=== PATIENT | female | born 1955 | race Two or more races ===

== ENCOUNTER 2020-06-24 11:23 | Inpatient (IN) | payer OTHER ==
[~2020-06-24] VITALS: Ht 154.9 cm; Wt 98.8 kg
[2020-06-24 12:09] LABS: BASOPHILS % (AUTO) 0 % (0-1); EOSINOPHILS % (AUTO) 0 % (1-7); LYMPHOCYTES % (AUTO) 10 % (22-44); MEAN PLATELET VOLUME 7.1 fL (7.4-10.4); MONOCYTES % (AUTO) 3 % (2-9); NEUTROPHILS % (AUTO) 87 % (42-75); PLATELET COUNT 377 x10^3/uL (130-400); RED CELL DISTRIBUTION WIDTH 14.6 % (9.6-15.2)
[2020-06-24] MEDS ORDERED: OMNIPAQUE 350 MG/ML, 100ML BOTTLE ONE (12:21)
[2020-06-24 12:22] LABS: INTERNATIONAL NORMALIZED RATIO 0.94 (0.93-1.1)
[2020-06-24 12:48] LABS: MD SCAN
[2020-06-24 12:49] LABS: MICROSCOPIC NOT IND
[2020-06-24] MEDS ORDERED: POTASSIUM CHLORIDE 20 MEQ TAB.ER.PRT PO ONE (13:00)
[2020-06-24] MEDS ORDERED: NS + 40MEQ KCL 1,000 ML IV ONE (13:02)
[2020-06-24] MEDS: NS + 40MEQ KCL 1,000 ML IV SCH ×3 (13:19→22:43)
[2020-06-24 13:45] LABS: CHLORIDE 96 mmol/L (98-107)
[2020-06-24 13:51] LABS: ALANINE AMINOTRANSFERASE 26 U/L (12-78); ALBUMIN 3.4 g/dL (3.4-5.0); ALKALINE PHOSPHATASE 88 U/L (45-117); ANION GAP 4 mmol/L (5-15); TOTAL PROTEIN 7.2 g/dL (6.4-8.2)
[2020-06-24 14:12] LABS: CALCIUM 18.1 mg/dL (8.5-10.1)
[2020-06-24] MEDS ORDERED: CALCITONIN SALMON 200 UNITS/ML, 2ML SQ ONE (14:49)
[2020-06-24 15:52] LABS: CHLORIDE,URINE RANDOM 75 mmol/L; POTASSIUM,URINE RANDOM 63 mmol/L; SODIUM,URINE RANDOM 36 mmol/L
[2020-06-24] MEDS ORDERED: PAMIDRONATE 3 MG/ML, 10ML IV ONE (16:30)
[2020-06-24] MEDS ORDERED: MAGNESIUM SULFATE PMX 2GM/50ML 50 ML IV ONE ×2 (16:30→19:30)
[2020-06-24 17:03] LABS: ANION GAP 2 mmol/L (5-15); CHLORIDE 98 mmol/L (98-107); CREATININE 2.39 mg/dL (0.55-1.02)
[2020-06-24 17:07] LABS: TROPONIN I < 0.015 ng/mL (0.000-0.045)
[2020-06-24] MEDS ORDERED: HEPARIN 5,000 UNITS/ML, 1ML ONE (17:09)
[2020-06-24] MEDS ORDERED: MAGNESIUM SULFATE PMX 2GM/50ML 50 ML ONE ×2 (17:09→19:45)
[2020-06-24] MEDS: HEPARIN 5,000 UNITS/ML, 1ML SQ SCH (17:18)
[2020-06-24] MEDS ORDERED: PAMIDRONATE 60 MG in SODIUM CHLORIDE 0.9% 500 ML IV ONE (17:30)
[2020-06-24] MEDS: INSULIN LISPRO 100 UNITS/ML, PEN SQ-INSULIN SCH ×2 (17:33→22:48)
[2020-06-24] MEDS ORDERED: LABETALOL 20 MG/4 ML ONE (18:18)
[2020-06-24] MEDS: LABETALOL 5MG/ML, 20ML IVPush PRN (18:23)
[2020-06-24] MEDS ORDERED: ETOMIDATE 20 MG/10 ML ONE (18:45)
[2020-06-24] MEDS ORDERED: PROPOFOL 10 MG/ML, 20ML ONE (18:45)
[2020-06-24] MEDS ORDERED: MIDAZOLAM 1 MG/ML, 5ML ONE (18:45)
[2020-06-24] MEDS ORDERED: INSULIN LISPRO 100 UNITS/ML, PEN SQ-INSULIN SCH (21:00)
[2020-06-24 22:45] LABS: TROPONIN I < 0.015 ng/mL (0.000-0.045)
[2020-06-24 22:52] LABS: ANION GAP 4 mmol/L (5-15); CHLORIDE 102 mmol/L (98-107); CREATININE 2.36 mg/dL (0.55-1.02)
[2020-06-24 22:58] LABS: CALCIUM 15.2 mg/dL (8.5-10.1)
[2020-06-25 04:00] VITALS: BP 162/84
[2020-06-25] MEDS: NS + 40MEQ KCL 1,000 ML IV SCH (04:18)
[2020-06-25 04:48] LABS: BASOPHILS % (AUTO) 0 % (0-1); EOSINOPHILS % (AUTO) 0 % (1-7); LYMPHOCYTES % (AUTO) 6 % (22-44); MEAN CORPUSCULAR HEMOGLOBIN 28.9 pg (27.0-34.8); MEAN CORPUSCULAR HGB CONC 32.6 g/dL (32.4-35.8); MEAN PLATELET VOLUME 7.2 fL (7.4-10.4); MONOCYTES % (AUTO) 2 % (2-9); NEUTROPHILS % (AUTO) 92 % (42-75); PLATELET COUNT 310 x10^3/uL (130-400); RED BLOOD COUNT 4.68 x10^6/uL (3.82-5.3); RED CELL DISTRIBUTION WIDTH 14.5 % (9.6-15.2)
[2020-06-25 04:49] LABS: MD NO
[2020-06-25 04:57] LABS: CHLORIDE 109 mmol/L (98-107)
[2020-06-25 05:02] LABS: ALANINE AMINOTRANSFERASE 21 U/L (12-78); ALBUMIN 2.8 g/dL (3.4-5.0); ALKALINE PHOSPHATASE 78 U/L (45-117); ANION GAP 3 mmol/L (5-15); BILIRUBIN,TOTAL 0.5 mg/dL (0.2-1.0); CREATININE 2.32 mg/dL (0.55-1.02); TOTAL PROTEIN 6.4 g/dL (6.4-8.2)
[2020-06-25 05:04] LABS: CALCIUM 14.3 mg/dL (8.5-10.1)
[2020-06-25] MEDS: HEPARIN 5,000 UNITS/ML, 1ML SQ SCH ×2 (05:51→15:54)
[2020-06-25] MEDS: INSULIN LISPRO 100 UNITS/ML, PEN SQ-INSULIN SCH ×3 (07:00→21:51)
[2020-06-25] MEDS: LABETALOL 5MG/ML, 20ML IVPush PRN ×2 (08:08→17:08)
[2020-06-25] MEDS ORDERED: CEFTRIAXONE PMX 2GM/50ML 50 ML IVPB SCH (09:00)
[2020-06-25] MEDS: KSCALE TO 4.5 IV SCH ×3 (09:30→15:52)
[2020-06-25] MEDS: SODIUM CHLORIDE 0.9% 1,000 ML IV SCH ×3 (09:33→21:50)
[2020-06-25] MEDS: FUROSEMIDE 40 MG/4 ML IV SCH ×2 (10:39→20:25)
[2020-06-25] MEDS ORDERED: POTASSIUM CHLORIDE 10% 40 MEQ/30 ML UDC PO ONE (11:00)
[2020-06-25] MEDS ORDERED: ACETAMINOPHEN 650 MG/20.3 ML UDC ONE (11:05)
[2020-06-25] MEDS: ACETAMINOPHEN 650 MG/20.3 ML UDC PO PRN ×2 (11:26→17:48)
[2020-06-25] MEDS: METOPROLOL TARTRATE 25 MG TAB PO SCH ×2 (13:34→21:43)
[2020-06-25] MEDS: AMPICILLIN/SULBACTAM 1,500 MG in SODIUM CHLORIDE 0.9% 50 ML IV SCH ×2 (14:03→22:05)
[2020-06-25] MEDS ORDERED: LEVO150T5 PO (14:08)
[2020-06-25] MEDS ORDERED: LISI1TAB20 PO (14:08)
[2020-06-25] MEDS ORDERED: METF500T27 PO (14:08)
[2020-06-25] MEDS ORDERED: GLYB5TAB3 PO (14:08)
[2020-06-25] MEDS ORDERED: ATOR40TA78 PO (14:08)
[2020-06-25] MEDS ORDERED: POTASSIUM CHLORIDE 20 MEQ TAB.ER.PRT PO SCH (17:00)
[2020-06-25] MEDS ORDERED: POTASSIUM CHLORIDE 20 MEQ PACKET PO SCH (21:00)
[2020-06-26] MEDS: LABETALOL 5MG/ML, 20ML IVPush PRN ×2 (01:14→04:10)
[2020-06-26] MEDS: INSULIN LISPRO 100 UNITS/ML, PEN SQ-INSULIN SCH ×4 (03:00→20:50)
[2020-06-26] MEDS: SODIUM CHLORIDE 0.9% 1,000 ML IV SCH (03:59)
[2020-06-26 04:00] VITALS: BP 160/79
[2020-06-26 04:55] LABS: BASOPHILS % (AUTO) 0 % (0-1); EOSINOPHILS % (AUTO) 1 % (1-7); LYMPHOCYTES % (AUTO) 7 % (22-44); MEAN CORPUSCULAR HEMOGLOBIN 28.8 pg (27.0-34.8); MEAN CORPUSCULAR HGB CONC 32.2 g/dL (32.4-35.8); MONOCYTES % (AUTO) 3 % (2-9); NEUTROPHILS % (AUTO) 89 % (42-75); PLATELET COUNT 259 x10^3/uL (130-400); RED BLOOD COUNT 4.32 x10^6/uL (3.82-5.3)
[2020-06-26 05:02] LABS: MD NO
[2020-06-26] MEDS: METOPROLOL TARTRATE 25 MG TAB PO SCH ×3 (05:05→20:43)
[2020-06-26] MEDS: HEPARIN 5,000 UNITS/ML, 1ML SQ SCH ×2 (05:05→17:07)
[2020-06-26 05:07] LABS: ANION GAP 5 mmol/L (5-15); CALCIUM 11.3 mg/dL (8.5-10.1); CHLORIDE 115 mmol/L (98-107)
[2020-06-26 05:09] LABS: CREATININE 2.36 mg/dL (0.55-1.02)
[2020-06-26] MEDS: AMPICILLIN/SULBACTAM 1,500 MG in SODIUM CHLORIDE 0.9% 50 ML IV SCH ×3 (06:24→23:12)
[2020-06-26] MEDS ORDERED: MAGNESIUM SULFATE PMX 2GM/50ML 50 ML IV ONE (06:30)
[2020-06-26] MEDS: POTASSIUM CHLORIDE 20 MEQ PACKET PO SCH ×4 (06:48→20:43)
[2020-06-26] MEDS: ACETAMINOPHEN 650 MG/20.3 ML UDC PO PRN (07:53)
[2020-06-26] MEDS ORDERED: ALBUTEROL/IPRATROPIUM 2.5MG/0.5MG, 3 ML ONE (08:58)
[2020-06-26] MEDS ORDERED: ALBUTEROL SULFATE 2.5MG/0.5ML ONE (08:58)
[2020-06-26] MEDS: ALBUTEROL/IPRATROPIUM 2.5MG/0.5MG, 3 ML NPPB SCH ×3 (09:10→20:00)
[2020-06-26] MEDS: FUROSEMIDE 40 MG/4 ML IV SCH (09:15)
[2020-06-26] MEDS: methylPREDNISolone SOD SUCC 40 MG/ML IVPush SCH ×2 (09:15→20:42)
[2020-06-26] MEDS: AMLODIPINE 5 MG TABLET PO SCH (09:15)
[2020-06-26 20:00] VITALS: BP 153/64
[2020-06-26] MEDS ORDERED: INSULIN GLARGINE 100 UNITS/ML, PEN SQ-INSULIN SCH (21:00)
[2020-06-27 02:00] VITALS: BP 155/74
[2020-06-27 04:35] LABS: MEAN CORPUSCULAR HEMOGLOBIN 28.7 pg (27.0-34.8); MEAN CORPUSCULAR HGB CONC 32.2 g/dL (32.4-35.8); MEAN PLATELET VOLUME 7.7 fL (7.4-10.4); PLATELET COUNT 299 x10^3/uL (130-400); RED BLOOD COUNT 4.31 x10^6/uL (3.82-5.3); RED CELL DISTRIBUTION WIDTH 14.9 % (9.6-15.2)
[2020-06-27 04:40] LABS: ANION GAP 8 mmol/L (5-15); CALCIUM 10.1 mg/dL (8.5-10.1); CHLORIDE 117 mmol/L (98-107)
[2020-06-27 04:41] LABS: CREATININE 2.17 mg/dL (0.55-1.02)
[2020-06-27 05:08] LABS: MD YES
[2020-06-27 05:10] LABS: <PLATELET ESTIMATE> ADEQUATE; <RBC MORPHOLOGY> NORMAL; BAND#(MANUAL) 0.69 x10^3/uL; BANDS%(MANUAL) 4 % (0-7); LYMPH#(MANUAL) 0.52 x10^3/uL (1-3.4); LYMPHS% (MANUAL) 3 % (22-44); MONOS#(MANUAL) 0.35 x10^3/uL (0.3-2.7); MONOS% (MANUAL) 2 % (2-9); SEG#(MANUAL) 15.74 x10^3/uL (1.8-6.8); SEGS% (MANUAL) 91 % (42-75)
[2020-06-27 05:11] LABS: <PLT MORPHOLOGY> NORMAL PLT MORPH
[2020-06-27] MEDS: METOPROLOL TARTRATE 25 MG TAB PO SCH (05:44)
[2020-06-27] MEDS: AMPICILLIN/SULBACTAM 1,500 MG in SODIUM CHLORIDE 0.9% 50 ML IV SCH ×2 (05:44→16:31)
[2020-06-27] MEDS: INSULIN LISPRO 100 UNITS/ML, PEN SQ-INSULIN SCH ×4 (05:44→20:27)
[2020-06-27] MEDS: HEPARIN 5,000 UNITS/ML, 1ML SQ SCH ×2 (05:45→16:31)
[2020-06-27] MEDS: ALBUTEROL/IPRATROPIUM 2.5MG/0.5MG, 3 ML NPPB SCH ×3 (07:02→14:57)
[2020-06-27] MEDS ORDERED: POTASSIUM CHLORIDE 10% 40 MEQ/30 ML UDC PO ONE (08:00)
[2020-06-27] MEDS ORDERED: FUROSEMIDE 100 MG/10 ML IV ONE (08:00)
[2020-06-27] MEDS ORDERED: SODIUM CHLORIDE 0.9% 1,000 ML IV SCH (08:30)
[2020-06-27] MEDS: methylPREDNISolone SOD SUCC 40 MG/ML IVPush SCH ×2 (09:11→20:22)
[2020-06-27] MEDS: METOPROLOL TARTRATE 100 MG TAB PO SCH ×2 (09:11→20:44)
[2020-06-27] MEDS: AMLODIPINE 5 MG TABLET PO SCH (09:11)
[2020-06-27] MEDS: INSULIN GLARGINE 100 UNITS/ML, PEN SQ-INSULIN SCH ×2 (09:43→20:27)
[2020-06-27] MEDS ORDERED: FENTANYL PF 100 MCG/2ML ONE (12:27)
[2020-06-27] MEDS: PROPOFOL 100 ML IV PRN ×2 (12:45→18:48)
[2020-06-27] MEDS ORDERED: FENTANYL PF 100 MCG/2ML IVPush ONE (13:00)
[2020-06-27] MEDS ORDERED: ONDANSETRON 2MG/ML, 2ML IV PRN (13:30)
[2020-06-27] MEDS ORDERED: DEXTROSE 4 GM TAB.CHEW PO PRN (13:30)
[2020-06-27] MEDS ORDERED: GLUCAGON 1 MG IM PRN (13:30)
[2020-06-27] MEDS ORDERED: LIDOCAINE-MPF 1%, 2ML ENDO PRN (13:30)
[2020-06-27] MEDS ORDERED: DEXTROSE 50%, 50ML SYRINGE IVPush PRN (13:30)
[2020-06-27] MEDS ORDERED: PHARMACY MAY ADJ FOR RENAL FX MC SCH (13:30)
[2020-06-27] MEDS: ALBUTEROL/IPRATROPIUM 2.5MG/0.5MG, 3 ML INLINE SCH ×2 (19:00→22:56)
[2020-06-27] MEDS: SODIUM CHLORIDE FLUSH 10ML SYR IVF SCH (20:22)
[2020-06-28] MEDS: PROPOFOL 100 ML IV PRN ×3 (02:42→18:05)
[2020-06-28] MEDS: ALBUTEROL/IPRATROPIUM 2.5MG/0.5MG, 3 ML INLINE SCH ×6 (03:00→22:17)
[2020-06-28] MEDS: INSULIN LISPRO 100 UNITS/ML, PEN SQ-INSULIN SCH ×6 (03:32→20:50)
[2020-06-28 04:00] VITALS: BP 142/69
[2020-06-28] MEDS: AMPICILLIN/SULBACTAM 1,500 MG in SODIUM CHLORIDE 0.9% 50 ML IV SCH ×2 (04:35→16:19)
[2020-06-28 04:36] LABS: BASOPHILS % (AUTO) 0 % (0-1); EOSINOPHILS % (AUTO) 0 % (1-7); LYMPHOCYTES % (AUTO) 5 % (22-44); MD NO; MEAN CORPUSCULAR HEMOGLOBIN 29.4 pg (27.0-34.8); MEAN CORPUSCULAR HGB CONC 33.3 g/dL (32.4-35.8); MEAN PLATELET VOLUME 7.6 fL (7.4-10.4); MONOCYTES % (AUTO) 3 % (2-9); NEUTROPHILS % (AUTO) 92 % (42-75); PLATELET COUNT 342 x10^3/uL (130-400); RED BLOOD COUNT 4.12 x10^6/uL (3.82-5.3); RED CELL DISTRIBUTION WIDTH 15.1 % (9.6-15.2)
[2020-06-28] MEDS: HEPARIN 5,000 UNITS/ML, 1ML SQ SCH ×2 (04:36→16:15)
[2020-06-28 04:50] LABS: ANION GAP 10 mmol/L (5-15); CHLORIDE 117 mmol/L (98-107); CREATININE 2.24 mg/dL (0.55-1.02)
[2020-06-28] MEDS ORDERED: MAGNESIUM SULFATE PMX 2GM/50ML 50 ML IV ONE (06:30)
[2020-06-28] MEDS ORDERED: POTASSIUM CHLORIDE 10% 40 MEQ/30 ML UDC PO ONE (06:30)
[2020-06-28] MEDS ORDERED: POTASSIUM CHLORIDE 40 MEQ in SODIUM CHLORIDE 0.9% 500 ML IV ONE (06:30)
[2020-06-28] MEDS ORDERED: POTASSIUM CHLORIDE 40 MEQ in SODIUM CHLORIDE 0.45% 500 ML IV ONE (07:04)
[2020-06-28] MEDS: SODIUM CHLORIDE FLUSH 10ML SYR IVF SCH ×2 (09:00→20:35)
[2020-06-28] MEDS ORDERED: INSULIN GLARGINE 100 UNITS/ML, PEN SQ-INSULIN SCH ×2 (09:00→21:00)
[2020-06-28] MEDS: methylPREDNISolone SOD SUCC 40 MG/ML IVPush SCH ×2 (09:18→20:35)
[2020-06-28] MEDS: FAMOTIDINE 20 MG TABLET NG SCH (09:18)
[2020-06-28] MEDS: AMLODIPINE 5 MG TABLET PO SCH (09:19)
[2020-06-28] MEDS: QUETIAPINE 25MG TABLET NG SCH ×3 (09:19→20:35)
[2020-06-28] MEDS: METOPROLOL TARTRATE 100 MG TAB PO SCH ×2 (09:19→20:35)
[2020-06-28] MEDS ORDERED: INSULIN LISPRO 100 UNITS/ML, PEN SQ-INSULIN SCH ×2 (10:00→22:00)
[2020-06-29] MEDS: ALBUTEROL/IPRATROPIUM 2.5MG/0.5MG, 3 ML INLINE SCH ×6 (02:06→22:25)
[2020-06-29] MEDS: PROPOFOL 100 ML IV PRN ×3 (02:58→22:47)
[2020-06-29 04:00] VITALS: BP 134/68
[2020-06-29] MEDS: HEPARIN 5,000 UNITS/ML, 1ML SQ SCH ×2 (04:31→18:11)
[2020-06-29] MEDS: AMPICILLIN/SULBACTAM 1,500 MG in SODIUM CHLORIDE 0.9% 50 ML IV SCH ×2 (04:31→18:11)
[2020-06-29] MEDS: INSULIN LISPRO 100 UNITS/ML, PEN SQ-INSULIN SCH ×8 (04:33→21:08)
[2020-06-29 07:21] LABS: BASOPHILS % (AUTO) 0 % (0-1); EOSINOPHILS % (AUTO) 0 % (1-7); LYMPHOCYTES % (AUTO) 4 % (22-44); MEAN CORPUSCULAR HGB CONC 32.5 g/dL (32.4-35.8); MEAN PLATELET VOLUME 7.6 fL (7.4-10.4); MONOCYTES % (AUTO) 3 % (2-9); NEUTROPHILS % (AUTO) 93 % (42-75); PLATELET COUNT 342 x10^3/uL (130-400); RED BLOOD COUNT 4.08 x10^6/uL (3.82-5.3); RED CELL DISTRIBUTION WIDTH 15.1 % (9.6-15.2)
[2020-06-29 07:26] LABS: ANION GAP 9 mmol/L (5-15); CALCIUM 8.7 mg/dL (8.5-10.1); CHLORIDE 125 mmol/L (98-107); CREATININE 1.98 mg/dL (0.55-1.02)
[2020-06-29 07:52] LABS: MD SCAN
[2020-06-29] MEDS ORDERED: POTASSIUM CHLORIDE 20 MEQ PACKET NG ONE (09:00)
[2020-06-29] MEDS: AMLODIPINE 5 MG TABLET PO SCH (09:09)
[2020-06-29] MEDS: METOPROLOL TARTRATE 100 MG TAB PO SCH ×2 (09:09→21:03)
[2020-06-29] MEDS: QUETIAPINE 25MG TABLET NG SCH ×3 (09:11→21:03)
[2020-06-29] MEDS: methylPREDNISolone SOD SUCC 40 MG/ML IVPush SCH (09:12)
[2020-06-29] MEDS: SODIUM CHLORIDE FLUSH 10ML SYR IVF SCH ×2 (09:13→21:02)
[2020-06-29] MEDS: FAMOTIDINE 20 MG TABLET NG SCH (09:13)
[2020-06-29] MEDS: INSULIN GLARGINE 100 UNITS/ML, PEN SQ-INSULIN SCH ×2 (09:16→21:10)
[2020-06-29] MEDS: DEXMEDETOMIDINE 200 MCG in SODIUM CHLORIDE 0.9% 48 ML IV PRN ×2 (09:35→12:59)
[2020-06-29] MEDS: FENTANYL PF 100 MCG/2ML IVPush PRN (11:34)
[2020-06-29 17:38] LABS: RAPID INFLUENZA A Negative (Negative); RAPID INFLUENZA B Negative (Negative)
[2020-06-30] MEDS: ACETAMINOPHEN 650 MG/20.3 ML UDC PO PRN ×4 (02:09→20:53)
[2020-06-30] MEDS: ALBUTEROL/IPRATROPIUM 2.5MG/0.5MG, 3 ML INLINE SCH ×6 (02:30→22:57)
[2020-06-30] MEDS: INSULIN LISPRO 100 UNITS/ML, PEN SQ-INSULIN SCH ×8 (03:53→20:58)
[2020-06-30 04:00] VITALS: BP 137/72
[2020-06-30] MEDS: PROPOFOL 100 ML IV PRN (05:13)
[2020-06-30] MEDS: HEPARIN 5,000 UNITS/ML, 1ML SQ SCH ×2 (05:13→17:14)
[2020-06-30] MEDS: AMPICILLIN/SULBACTAM 1,500 MG in SODIUM CHLORIDE 0.9% 50 ML IV SCH ×2 (05:13→17:14)
[2020-06-30 06:35] LABS: BASOPHILS % (AUTO) 1 % (0-1); EOSINOPHILS % (AUTO) 0 % (1-7); LYMPHOCYTES % (AUTO) 10 % (22-44); MEAN CORPUSCULAR HGB CONC 32.5 g/dL (32.4-35.8); MEAN PLATELET VOLUME 7.6 fL (7.4-10.4); MONOCYTES % (AUTO) 2 % (2-9); NEUTROPHILS % (AUTO) 87 % (42-75); PLATELET COUNT 333 x10^3/uL (130-400); RED BLOOD COUNT 4.11 x10^6/uL (3.82-5.3); RED CELL DISTRIBUTION WIDTH 15.2 % (9.6-15.2)
[2020-06-30 06:37] LABS: MD NO
[2020-06-30 06:45] LABS: ANION GAP 5 mmol/L (5-15); CALCIUM 8.1 mg/dL (8.5-10.1); CHLORIDE 129 mmol/L (98-107); CREATININE 1.42 mg/dL (0.55-1.02); TRIGLYCERIDES 414 mg/dL (50-200)
[2020-06-30] MEDS ORDERED: methylPREDNISolone SOD SUCC 40 MG/ML IVPush SCH (09:00)
[2020-06-30] MEDS: METOPROLOL TARTRATE 100 MG TAB PO SCH ×2 (09:54→20:54)
[2020-06-30] MEDS: FAMOTIDINE 20 MG TABLET NG SCH (09:54)
[2020-06-30] MEDS: QUETIAPINE 25MG TABLET NG SCH ×3 (09:55→20:54)
[2020-06-30] MEDS: SODIUM CHLORIDE FLUSH 10ML SYR IVF SCH ×2 (09:55→20:54)
[2020-06-30] MEDS: INSULIN GLARGINE 100 UNITS/ML, PEN SQ-INSULIN SCH ×2 (09:57→20:59)
[2020-06-30] MEDS: MIDAZOLAM HCL 50 MG in SODIUM CHLORIDE 0.9% 40 ML IV PRN ×2 (10:05→20:53)
[2020-07-01] MEDS: ALBUTEROL/IPRATROPIUM 2.5MG/0.5MG, 3 ML INLINE SCH ×6 (02:28→22:31)
[2020-07-01] MEDS: FENTANYL PF 100 MCG/2ML IVPush PRN (03:04)
[2020-07-01] MEDS: INSULIN LISPRO 100 UNITS/ML, PEN SQ-INSULIN SCH ×8 (03:05→21:51)
[2020-07-01 04:34] VITALS: BP 132/63
[2020-07-01 04:56] LABS: BASOPHILS % (AUTO) 0 % (0-1); EOSINOPHILS % (AUTO) 0 % (1-7); LYMPHOCYTES % (AUTO) 11 % (22-44); MEAN CORPUSCULAR HEMOGLOBIN 28.8 pg (27.0-34.8); MEAN CORPUSCULAR HGB CONC 32.1 g/dL (32.4-35.8); MONOCYTES % (AUTO) 3 % (2-9); NEUTROPHILS % (AUTO) 86 % (42-75); PLATELET COUNT 333 x10^3/uL (130-400); RED BLOOD COUNT 3.78 x10^6/uL (3.82-5.3); RED CELL DISTRIBUTION WIDTH 15.2 % (9.6-15.2)
[2020-07-01] MEDS: AMPICILLIN/SULBACTAM 1,500 MG in SODIUM CHLORIDE 0.9% 50 ML IV SCH (04:56)
[2020-07-01] MEDS: HEPARIN 5,000 UNITS/ML, 1ML SQ SCH ×2 (04:56→16:29)
[2020-07-01 05:04] LABS: MD NO
[2020-07-01 05:09] LABS: CALCIUM 7.6 mg/dL (8.5-10.1); CHLORIDE 123 mmol/L (98-107)
[2020-07-01 05:12] LABS: ANION GAP 5 mmol/L (5-15); CREATININE 1.44 mg/dL (0.55-1.02)
[2020-07-01] MEDS ORDERED: MAGNESIUM SULFATE PMX 4GM/100M 100 ML IVPB ONE (06:30)
[2020-07-01] MEDS: POTASSIUM CHLORIDE 10% 40 MEQ/30 ML UDC PO SCH ×2 (09:04→21:48)
[2020-07-01] MEDS: FAMOTIDINE 20 MG TABLET NG SCH (09:04)
[2020-07-01] MEDS: METOPROLOL TARTRATE 100 MG TAB PO SCH ×2 (09:05→21:48)
[2020-07-01] MEDS: QUETIAPINE 25MG TABLET NG SCH ×3 (09:05→21:47)
[2020-07-01] MEDS: INSULIN GLARGINE 100 UNITS/ML, PEN SQ-INSULIN SCH ×2 (09:07→21:50)
[2020-07-01] MEDS: SODIUM CHLORIDE FLUSH 10ML SYR IVF SCH ×2 (09:07→21:47)
[2020-07-01] MEDS: CEFTRIAXONE PMX 2GM/50ML 50 ML IVPB SCH (10:09)
[2020-07-01] MEDS: FENTANYL PF 1,000 MCG in SODIUM CHLORIDE 0.9% 80 ML IV PRN (10:17)
[2020-07-01] MEDS: ACETAMINOPHEN 650 MG/20.3 ML UDC PO PRN (21:48)
[2020-07-02] MEDS: INSULIN LISPRO 100 UNITS/ML, PEN SQ-INSULIN SCH ×8 (02:14→20:12)
[2020-07-02] MEDS: ALBUTEROL/IPRATROPIUM 2.5MG/0.5MG, 3 ML INLINE SCH ×6 (03:00→22:22)
[2020-07-02 04:00] VITALS: BP 112/52
[2020-07-02 04:14] LABS: BASOPHILS % (AUTO) 1 % (0-1); EOSINOPHILS % (AUTO) 2 % (1-7); LYMPHOCYTES % (AUTO) 11 % (22-44); MEAN CORPUSCULAR HEMOGLOBIN 28.9 pg (27.0-34.8); MEAN CORPUSCULAR HGB CONC 32.5 g/dL (32.4-35.8); MEAN PLATELET VOLUME 7.7 fL (7.4-10.4); MONOCYTES % (AUTO) 2 % (2-9); NEUTROPHILS % (AUTO) 85 % (42-75); PLATELET COUNT 331 x10^3/uL (130-400); RED BLOOD COUNT 3.65 x10^6/uL (3.82-5.3); RED CELL DISTRIBUTION WIDTH 15.2 % (9.6-15.2)
[2020-07-02 04:15] LABS: ANION GAP 5 mmol/L (5-15); CALCIUM 7.3 mg/dL (8.5-10.1); CHLORIDE 119 mmol/L (98-107); CREATININE 0.91 mg/dL (0.55-1.02)
[2020-07-02 04:19] LABS: MD NO
[2020-07-02] MEDS: HEPARIN 5,000 UNITS/ML, 1ML SQ SCH ×2 (05:13→17:40)
[2020-07-02] MEDS: ACETAMINOPHEN 650 MG/20.3 ML UDC PO PRN ×2 (05:14→14:00)
[2020-07-02] MEDS: METOPROLOL TARTRATE 100 MG TAB PO SCH ×2 (09:11→20:12)
[2020-07-02] MEDS: QUETIAPINE 25MG TABLET NG SCH ×3 (09:12→20:13)
[2020-07-02] MEDS: FAMOTIDINE 20 MG TABLET NG SCH (09:12)
[2020-07-02] MEDS: SODIUM CHLORIDE FLUSH 10ML SYR IVF SCH ×2 (09:12→20:13)
[2020-07-02] MEDS: INSULIN GLARGINE 100 UNITS/ML, PEN SQ-INSULIN SCH ×2 (09:15→20:11)
[2020-07-02] MEDS: CEFTRIAXONE PMX 2GM/50ML 50 ML IVPB SCH (10:12)
[2020-07-02] MEDS: FENTANYL PF 1,000 MCG in SODIUM CHLORIDE 0.9% 80 ML IV PRN (16:16)
[2020-07-03] MEDS: ACETAMINOPHEN 650 MG/20.3 ML UDC PO PRN ×2 (00:14→10:51)
[2020-07-03] MEDS: DEXMEDETOMIDINE 200 MCG in SODIUM CHLORIDE 0.9% 48 ML IV PRN (02:18)
[2020-07-03] MEDS: ALBUTEROL/IPRATROPIUM 2.5MG/0.5MG, 3 ML INLINE SCH ×6 (03:00→21:50)
[2020-07-03] MEDS: INSULIN LISPRO 100 UNITS/ML, PEN SQ-INSULIN SCH ×5 (03:00→21:00)
[2020-07-03 04:00] VITALS: BP 81/46
[2020-07-03 05:15] LABS: BASOPHILS % (AUTO) 0 % (0-1); EOSINOPHILS % (AUTO) 2 % (1-7); LYMPHOCYTES % (AUTO) 11 % (22-44); MEAN CORPUSCULAR HEMOGLOBIN 29.2 pg (27.0-34.8); MEAN CORPUSCULAR HGB CONC 32.7 g/dL (32.4-35.8); MEAN PLATELET VOLUME 7.7 fL (7.4-10.4); MONOCYTES % (AUTO) 2 % (2-9); NEUTROPHILS % (AUTO) 85 % (42-75); PLATELET COUNT 310 x10^3/uL (130-400); RED BLOOD COUNT 3.19 x10^6/uL (3.82-5.3); RED CELL DISTRIBUTION WIDTH 14.8 % (9.6-15.2)
[2020-07-03 05:24] LABS: ANION GAP 6 mmol/L (5-15); CHLORIDE 117 mmol/L (98-107); CREATININE 0.94 mg/dL (0.55-1.02); TRIGLYCERIDES 205 mg/dL (50-200)
[2020-07-03 05:28] LABS: MD NO
[2020-07-03] MEDS: HEPARIN 5,000 UNITS/ML, 1ML SQ SCH (06:35)
[2020-07-03] MEDS ORDERED: MAGNESIUM SULFATE PMX 2GM/50ML 50 ML IV ONE (07:00)
[2020-07-03] MEDS: FUROSEMIDE 20 MG/2 ML IV SCH ×3 (07:28→22:24)
[2020-07-03] MEDS ORDERED: REMDESIVIR 200 MG in SODIUM CHLORIDE 0.9% 250 ML IVPB ONE (08:00)
[2020-07-03] MEDS ORDERED: ENOXAPARIN 40 MG/0.4 ML SQ SCH (08:00)
[2020-07-03 08:16] LABS: BILIRUBIN,TOTAL 0.2 mg/dL (0.2-1.0)
[2020-07-03] MEDS: METOPROLOL TARTRATE 100 MG TAB PO SCH ×2 (08:29→20:40)
[2020-07-03] MEDS ORDERED: CHOLECALCIFEROL 1,000 UNIT TABLET PO SCH (09:00)
[2020-07-03] MEDS ORDERED: ASCORBIC ACID 500 MG TABLET PO SCH (09:00)
[2020-07-03] MEDS: SODIUM CHLORIDE FLUSH 10ML SYR IVF SCH ×2 (09:10→21:00)
[2020-07-03] MEDS: ZINC SULFATE 220 MG CAPSULE PO SCH (09:10)
[2020-07-03] MEDS: THIAMINE 100MG TABLET PO SCH (09:10)
[2020-07-03] MEDS: ASCORBIC ACID 500 MG TABLET PO SCH ×2 (09:11→21:00)
[2020-07-03] MEDS: QUETIAPINE 25MG TABLET NG SCH ×3 (09:11→21:00)
[2020-07-03] MEDS: DEXAMETHASONE 4 MG/ML, 1ML IVPush SCH (09:11)
[2020-07-03] MEDS: CHOLECALCIFEROL 5,000u TAB PO SCH (09:11)
[2020-07-03] MEDS: INSULIN GLARGINE 100 UNITS/ML, PEN SQ-INSULIN SCH ×2 (09:12→21:00)
[2020-07-03] MEDS ORDERED: FAMOTIDINE 40 MG TABLET ONE (09:29)
[2020-07-03] MEDS: FAMOTIDINE 20 MG TABLET NG SCH (09:32)
[2020-07-03] MEDS: CEFTRIAXONE PMX 2GM/50ML 50 ML IVPB SCH (11:10)
[2020-07-03] MEDS: PROPOFOL 100 ML IV PRN (17:17)
[2020-07-03] MEDS: FENTANYL PF 1,000 MCG in SODIUM CHLORIDE 0.9% 80 ML IV PRN (17:26)
[2020-07-03] MEDS: ENOXAPARIN 30 MG/0.3 ML SQ SCH (21:00)
[2020-07-04] MEDS: PROPOFOL 100 ML IV PRN ×4 (00:50→17:23)
[2020-07-04] MEDS: NOREPINEPHRINE 8 MG in SODIUM CHLORIDE 0.9% 242 ML IV PRN ×2 (00:51→21:37)
[2020-07-04] MEDS: ALBUTEROL/IPRATROPIUM 2.5MG/0.5MG, 3 ML INLINE SCH ×6 (02:57→22:09)
[2020-07-04] MEDS: FENTANYL PF 1,000 MCG in SODIUM CHLORIDE 0.9% 80 ML IV PRN ×2 (03:06→14:26)
[2020-07-04] MEDS: INSULIN LISPRO 100 UNITS/ML, PEN SQ-INSULIN SCH ×5 (03:07→21:27)
[2020-07-04 04:00] VITALS: BP 92/49
[2020-07-04 04:51] LABS: PROTHROMBIN TIME 10.6 Seconds (9.6-11.5)
[2020-07-04 04:55] LABS: ALANINE AMINOTRANSFERASE 40 U/L (12-78); ALBUMIN 1.4 g/dL (3.4-5.0); ANION GAP 9 mmol/L (5-15); CALCIUM 7.2 mg/dL (8.5-10.1); CHLORIDE 112 mmol/L (98-107); CREATININE 1.06 mg/dL (0.55-1.02)
[2020-07-04 04:56] LABS: BASOPHILS % (AUTO) 0 % (0-1); EOSINOPHILS % (AUTO) 0 % (1-7); LYMPHOCYTES % (AUTO) 6 % (22-44); MEAN CORPUSCULAR HEMOGLOBIN 29.1 pg (27.0-34.8); MEAN CORPUSCULAR HGB CONC 32.5 g/dL (32.4-35.8); MONOCYTES % (AUTO) 2 % (2-9); NEUTROPHILS % (AUTO) 91 % (42-75); PLATELET COUNT 360 x10^3/uL (130-400); RED BLOOD COUNT 3.14 x10^6/uL (3.82-5.3); RED CELL DISTRIBUTION WIDTH 14.8 % (9.6-15.2)
[2020-07-04 04:58] LABS: ALKALINE PHOSPHATASE 104 U/L (45-117); BILIRUBIN,TOTAL 0.1 mg/dL (0.2-1.0); TOTAL PROTEIN 6.1 g/dL (6.4-8.2)
[2020-07-04 05:15] LABS: MD NO
[2020-07-04] MEDS ORDERED: FAMOTIDINE 40 MG TABLET ONE (08:36)
[2020-07-04] MEDS: ASCORBIC ACID 500 MG TABLET PO SCH ×2 (09:00→21:08)
[2020-07-04] MEDS: ENOXAPARIN 30 MG/0.3 ML SQ SCH ×2 (09:00→21:09)
[2020-07-04] MEDS: FAMOTIDINE 20 MG TABLET NG SCH (09:00)
[2020-07-04] MEDS: THIAMINE 100MG TABLET PO SCH (09:00)
[2020-07-04] MEDS: QUETIAPINE 25MG TABLET NG SCH ×3 (09:00→21:08)
[2020-07-04] MEDS: ZINC SULFATE 220 MG CAPSULE PO SCH (09:00)
[2020-07-04] MEDS: CHOLECALCIFEROL 5,000u TAB PO SCH (09:00)
[2020-07-04] MEDS: METOPROLOL TARTRATE 100 MG TAB PO SCH (09:00)
[2020-07-04] MEDS: DEXAMETHASONE 4 MG/ML, 1ML IVPush SCH (09:26)
[2020-07-04] MEDS: SODIUM CHLORIDE FLUSH 10ML SYR IVF SCH ×2 (09:26→21:08)
[2020-07-04] MEDS: REMDESIVIR 100 MG in SODIUM CHLORIDE 0.9% 250 ML IVPB SCH (09:27)
[2020-07-04] MEDS: INSULIN GLARGINE 100 UNITS/ML, PEN SQ-INSULIN SCH ×2 (09:48→21:27)
[2020-07-04] MEDS: FENTANYL PF 2,500 MCG in SODIUM CHLORIDE 0.9% 200 ML IV PRN (21:37)
[2020-07-05] MEDS: NOREPINEPHRINE 8 MG in SODIUM CHLORIDE 0.9% 242 ML IV PRN ×2 (00:48→16:50)
[2020-07-05] MEDS: PROPOFOL 100 ML IV PRN ×4 (00:48→21:23)
[2020-07-05] MEDS: ALBUTEROL/IPRATROPIUM 2.5MG/0.5MG, 3 ML INLINE SCH ×6 (02:46→22:24)
[2020-07-05 04:00] VITALS: BP 135/49
[2020-07-05 05:04] LABS: BASOPHILS % (AUTO) 1 % (0-1); EOSINOPHILS % (AUTO) 0 % (1-7); LYMPHOCYTES % (AUTO) 7 % (22-44); MEAN CORPUSCULAR HEMOGLOBIN 28.9 pg (27.0-34.8); MEAN CORPUSCULAR HGB CONC 32.3 g/dL (32.4-35.8); MEAN PLATELET VOLUME 7.7 fL (7.4-10.4); MONOCYTES % (AUTO) 3 % (2-9); NEUTROPHILS % (AUTO) 89 % (42-75); PLATELET COUNT 421 x10^3/uL (130-400); RED BLOOD COUNT 3.21 x10^6/uL (3.82-5.3); RED CELL DISTRIBUTION WIDTH 15.2 % (9.6-15.2)
[2020-07-05 05:06] LABS: ALANINE AMINOTRANSFERASE 37 U/L (12-78); ALBUMIN 1.5 g/dL (3.4-5.0); ANION GAP 7 mmol/L (5-15); CALCIUM 7.1 mg/dL (8.5-10.1); CHLORIDE 113 mmol/L (98-107); CREATININE 1.06 mg/dL (0.55-1.02)
[2020-07-05 05:08] LABS: ALKALINE PHOSPHATASE 108 U/L (45-117); BILIRUBIN,TOTAL 0.2 mg/dL (0.2-1.0); TOTAL PROTEIN 6.4 g/dL (6.4-8.2)
[2020-07-05 05:12] LABS: MD NO
[2020-07-05] MEDS: INSULIN LISPRO 100 UNITS/ML, PEN SQ-INSULIN SCH ×4 (06:44→20:26)
[2020-07-05] MEDS: SODIUM CHLORIDE FLUSH 10ML SYR IVF SCH ×2 (08:46→20:13)
[2020-07-05] MEDS: QUETIAPINE 25MG TABLET NG SCH ×3 (08:46→20:12)
[2020-07-05] MEDS: CHOLECALCIFEROL 5,000u TAB PO SCH (08:46)
[2020-07-05] MEDS: ASCORBIC ACID 500 MG TABLET PO SCH ×2 (08:46→20:12)
[2020-07-05] MEDS: ENOXAPARIN 30 MG/0.3 ML SQ SCH ×2 (08:47→20:13)
[2020-07-05] MEDS: ZINC SULFATE 220 MG CAPSULE PO SCH (08:47)
[2020-07-05] MEDS: THIAMINE 100MG TABLET PO SCH (08:47)
[2020-07-05] MEDS: FAMOTIDINE 20 MG TABLET NG SCH (08:48)
[2020-07-05] MEDS: INSULIN GLARGINE 100 UNITS/ML, PEN SQ-INSULIN SCH ×2 (08:49→20:26)
[2020-07-05] MEDS ORDERED: DEXAMETHASONE 4 MG/ML, 1ML IVPush SCH (09:00)
[2020-07-05] MEDS: REMDESIVIR 100 MG in SODIUM CHLORIDE 0.9% 250 ML IVPB SCH (09:10)
[2020-07-05] MEDS: ACETAMINOPHEN 650 MG/20.3 ML UDC PO PRN (12:44)
[2020-07-05] MEDS: FENTANYL PF 2,500 MCG in SODIUM CHLORIDE 0.9% 200 ML IV PRN (16:49)
[2020-07-06] MEDS: ALBUTEROL/IPRATROPIUM 2.5MG/0.5MG, 3 ML INLINE SCH ×6 (02:16→22:23)
[2020-07-06] MEDS: PROPOFOL 100 ML IV PRN (03:12)
[2020-07-06 04:00] VITALS: BP 99/63
[2020-07-06 05:28] LABS: ALBUMIN 1.5 g/dL (3.4-5.0); ANION GAP 4 mmol/L (5-15); CHLORIDE 112 mmol/L (98-107)
[2020-07-06 05:32] LABS: ALKALINE PHOSPHATASE 98 U/L (45-117); BILIRUBIN,TOTAL 0.3 mg/dL (0.2-1.0); CREATININE 0.83 mg/dL (0.55-1.02); TOTAL PROTEIN 5.7 g/dL (6.4-8.2); TRIGLYCERIDES 988 mg/dL (50-200)
[2020-07-06 05:39] LABS: BASOPHILS % (AUTO) 1 % (0-1); EOSINOPHILS % (AUTO) 1 % (1-7); LYMPHOCYTES % (AUTO) 10 % (22-44); MEAN CORPUSCULAR HEMOGLOBIN 30.6 pg (27.0-34.8); MEAN CORPUSCULAR HGB CONC 33.8 g/dL (32.4-35.8); MEAN PLATELET VOLUME 7.9 fL (7.4-10.4); MONOCYTES % (AUTO) 3 % (2-9); NEUTROPHILS % (AUTO) 86 % (42-75); PLATELET COUNT 399 x10^3/uL (130-400); RED BLOOD COUNT 2.83 x10^6/uL (3.82-5.3); RED CELL DISTRIBUTION WIDTH 15.3 % (9.6-15.2)
[2020-07-06 05:44] LABS: ALANINE AMINOTRANSFERASE 30 U/L (12-78)
[2020-07-06 06:31] LABS: MD MORPH REVIEW ONLY
[2020-07-06 06:32] LABS: ANISOCYTOSIS 1+; SPHEROCYTES 1+
[2020-07-06 06:33] LABS: POLYCHROMASIA 1+
[2020-07-06 06:48] LABS: <PLATELET ESTIMATE> ADEQUATE; <PLT MORPHOLOGY> NORMAL PLT MORPH
[2020-07-06] MEDS ORDERED: MAGNESIUM SULFATE PMX 2GM/50ML 50 ML IV ONE (07:30)
[2020-07-06] MEDS ORDERED: INSULIN LISPRO 100 UNIT/ML, 3ML VIAL SQ-INSULIN SCH (07:30)
[2020-07-06] MEDS ORDERED: FAMOTIDINE 40 MG TABLET ONE (08:35)
[2020-07-06] MEDS: ASCORBIC ACID 500 MG TABLET PO SCH ×2 (08:55→19:53)
[2020-07-06] MEDS: MIDAZOLAM HCL 50 MG in SODIUM CHLORIDE 0.9% 40 ML IV PRN ×2 (08:55→23:05)
[2020-07-06] MEDS: CHOLECALCIFEROL 5,000u TAB PO SCH (08:55)
[2020-07-06] MEDS: ZINC SULFATE 220 MG CAPSULE PO SCH (08:55)
[2020-07-06] MEDS: THIAMINE 100MG TABLET PO SCH (08:55)
[2020-07-06] MEDS: SODIUM CHLORIDE FLUSH 10ML SYR IVF SCH ×2 (08:56→19:54)
[2020-07-06] MEDS: ENOXAPARIN 30 MG/0.3 ML SQ SCH ×2 (08:56→19:53)
[2020-07-06] MEDS: FAMOTIDINE 20 MG TABLET NG SCH (08:56)
[2020-07-06] MEDS: QUETIAPINE 25MG TABLET NG SCH ×3 (08:56→19:53)
[2020-07-06] MEDS: metFORMIN 500 MG TABLET PO SCH ×2 (08:56→17:00)
[2020-07-06] MEDS: INSULIN GLARGINE 100 UNITS/ML, PEN SQ-INSULIN SCH ×2 (08:57→19:57)
[2020-07-06] MEDS: INSULIN LISPRO 100 UNITS/ML, PEN SQ-INSULIN SCH ×4 (08:58→21:00)
[2020-07-06] MEDS: REMDESIVIR 100 MG in SODIUM CHLORIDE 0.9% 250 ML IVPB SCH (10:17)
[2020-07-06] MEDS: NOREPINEPHRINE 8 MG in SODIUM CHLORIDE 0.9% 242 ML IV PRN (11:47)
[2020-07-06] MEDS: FENTANYL PF 2,500 MCG in SODIUM CHLORIDE 0.9% 200 ML IV PRN (12:14)
[2020-07-06] MEDS: INSULIN LISPRO 100 UNIT/ML, 3ML VIAL SQ-INSULIN SCH ×2 (15:00→21:00)
[2020-07-07] MEDS: ALBUTEROL/IPRATROPIUM 2.5MG/0.5MG, 3 ML INLINE SCH ×6 (02:30→22:17)
[2020-07-07] MEDS: INSULIN LISPRO 100 UNIT/ML, 3ML VIAL SQ-INSULIN SCH ×4 (03:00→21:00)
[2020-07-07] MEDS: INSULIN LISPRO 100 UNITS/ML, PEN SQ-INSULIN SCH ×4 (03:00→20:15)
[2020-07-07 04:00] VITALS: BP 128/72
[2020-07-07 04:40] LABS: MEAN CORPUSCULAR HEMOGLOBIN 29.8 pg (27.0-34.8); PLATELET COUNT 402 x10^3/uL (130-400); RED CELL DISTRIBUTION WIDTH 15.3 % (9.6-15.2)
[2020-07-07 04:51] LABS: ALANINE AMINOTRANSFERASE 29 U/L (12-78); ALBUMIN 1.6 g/dL (3.4-5.0); ANION GAP 4 mmol/L (5-15); CALCIUM 7.8 mg/dL (8.5-10.1); CHLORIDE 118 mmol/L (98-107); CREATININE 0.64 mg/dL (0.55-1.02)
[2020-07-07 04:53] LABS: ALKALINE PHOSPHATASE 97 U/L (45-117); BILIRUBIN,TOTAL 0.2 mg/dL (0.2-1.0)
[2020-07-07 05:56] LABS: MD YES
[2020-07-07 05:58] LABS: <PLATELET ESTIMATE> INCREASED; <PLT MORPHOLOGY> NORMAL PLT MORPH; ANISOCYTOSIS 1+; BAND#(MANUAL) 0.11 x10^3/uL; BANDS%(MANUAL) 1 % (0-7); EOS#(MANUAL) 0.34 x10^3/uL (0.0-0.4); EOS% (MANUAL) 3 % (1-7); LYMPH#(MANUAL) 0.78 x10^3/uL (1-3.4); LYMPHS% (MANUAL) 7 % (22-44); METAMYELOCYTES# (MANUAL) 0.22 x10^3/uL (0-0); METAMYELOCYTES% (MANUAL) 2 % (0-1); MONOS#(MANUAL) 0.22 x10^3/uL (0.3-2.7); MONOS% (MANUAL) 2 % (2-9); POLYCHROMASIA 1+; SEG#(MANUAL) 9.52 x10^3/uL (1.8-6.8); SEGS% (MANUAL) 85 % (42-75)
[2020-07-07] MEDS: FENTANYL PF 2,500 MCG in SODIUM CHLORIDE 0.9% 200 ML IV PRN (07:10)
[2020-07-07] MEDS: ASCORBIC ACID 500 MG TABLET PO SCH ×2 (08:13→20:08)
[2020-07-07] MEDS: metFORMIN 500 MG TABLET PO SCH ×2 (08:13→15:32)
[2020-07-07] MEDS: ENOXAPARIN 30 MG/0.3 ML SQ SCH ×2 (08:13→20:09)
[2020-07-07] MEDS: ZINC SULFATE 220 MG CAPSULE PO SCH (08:13)
[2020-07-07] MEDS: SODIUM CHLORIDE FLUSH 10ML SYR IVF SCH ×2 (08:14→20:09)
[2020-07-07] MEDS: CHOLECALCIFEROL 5,000u TAB PO SCH (08:14)
[2020-07-07] MEDS: FAMOTIDINE 20 MG TABLET NG SCH (08:14)
[2020-07-07] MEDS: QUETIAPINE 25MG TABLET NG SCH ×3 (08:14→20:08)
[2020-07-07] MEDS: THIAMINE 100MG TABLET PO SCH (08:14)
[2020-07-07] MEDS: INSULIN GLARGINE 100 UNITS/ML, PEN SQ-INSULIN SCH ×3 (08:15→20:16)
[2020-07-07] MEDS: REMDESIVIR 100 MG in SODIUM CHLORIDE 0.9% 250 ML IVPB SCH (08:32)
[2020-07-07] MEDS: ACETAMINOPHEN 650 MG/20.3 ML UDC PO PRN ×2 (09:32→22:01)
[2020-07-08] MEDS: FENTANYL PF 2,500 MCG in SODIUM CHLORIDE 0.9% 200 ML IV PRN (00:11)
[2020-07-08] MEDS: MIDAZOLAM HCL 50 MG in SODIUM CHLORIDE 0.9% 40 ML IV PRN ×2 (00:11→07:45)
[2020-07-08] MEDS: INSULIN LISPRO 100 UNITS/ML, PEN SQ-INSULIN SCH ×4 (03:00→21:19)
[2020-07-08] MEDS: INSULIN LISPRO 100 UNIT/ML, 3ML VIAL SQ-INSULIN SCH ×2 (03:00→08:03)
[2020-07-08] MEDS: ALBUTEROL/IPRATROPIUM 2.5MG/0.5MG, 3 ML INLINE SCH ×6 (03:00→23:20)
[2020-07-08 04:00] VITALS: BP 140/67
[2020-07-08 04:36] LABS: BASOPHILS % (AUTO) 1 % (0-1); EOSINOPHILS % (AUTO) 2 % (1-7); LYMPHOCYTES % (AUTO) 11 % (22-44); MEAN CORPUSCULAR HEMOGLOBIN 30.1 pg (27.0-34.8); MEAN CORPUSCULAR HGB CONC 33.1 g/dL (32.4-35.8); MEAN PLATELET VOLUME 7.1 fL (7.4-10.4); MONOCYTES % (AUTO) 2 % (2-9); NEUTROPHILS % (AUTO) 84 % (42-75); PLATELET COUNT 405 x10^3/uL (130-400); RED BLOOD COUNT 3.01 x10^6/uL (3.82-5.3); RED CELL DISTRIBUTION WIDTH 15.3 % (9.6-15.2)
[2020-07-08 04:48] LABS: ANION GAP 4 mmol/L (5-15); CALCIUM 8.7 mg/dL (8.5-10.1); CHLORIDE 118 mmol/L (98-107)
[2020-07-08 04:58] LABS: MD SCAN
[2020-07-08] MEDS: FAMOTIDINE 20 MG TABLET NG SCH (08:01)
[2020-07-08] MEDS: ENOXAPARIN 30 MG/0.3 ML SQ SCH ×2 (08:01→21:17)
[2020-07-08] MEDS: ZINC SULFATE 220 MG CAPSULE PO SCH (08:01)
[2020-07-08] MEDS: ASCORBIC ACID 500 MG TABLET PO SCH ×2 (08:01→21:18)
[2020-07-08] MEDS: metFORMIN 500 MG TABLET PO SCH ×2 (08:02→16:42)
[2020-07-08] MEDS: CHOLECALCIFEROL 5,000u TAB PO SCH (08:02)
[2020-07-08] MEDS: THIAMINE 100MG TABLET PO SCH (08:02)
[2020-07-08] MEDS: SODIUM CHLORIDE FLUSH 10ML SYR IVF SCH ×2 (08:02→21:00)
[2020-07-08] MEDS: QUETIAPINE 25MG TABLET NG SCH ×3 (08:02→21:18)
[2020-07-08] MEDS: INSULIN GLARGINE 100 UNITS/ML, PEN SQ-INSULIN SCH (08:05)
[2020-07-08] MEDS: POTASSIUM CHLORIDE 20 MEQ TAB.ER.PRT PO SCH ×2 (10:32→21:18)
[2020-07-09] MEDS: FENTANYL PF 2,500 MCG in SODIUM CHLORIDE 0.9% 200 ML IV PRN ×2 (01:09→23:32)
[2020-07-09] MEDS: ALBUTEROL/IPRATROPIUM 2.5MG/0.5MG, 3 ML INLINE SCH ×6 (02:50→22:34)
[2020-07-09] MEDS: INSULIN LISPRO 100 UNITS/ML, PEN SQ-INSULIN SCH ×4 (03:01→22:00)
[2020-07-09] MEDS: MIDAZOLAM HCL 50 MG in SODIUM CHLORIDE 0.9% 40 ML IV PRN (03:59)
[2020-07-09 04:00] VITALS: BP 140/72
[2020-07-09 04:29] LABS: BASOPHILS % (AUTO) 1 % (0-1); EOSINOPHILS % (AUTO) 1 % (1-7); LYMPHOCYTES % (AUTO) 9 % (22-44); MEAN CORPUSCULAR HEMOGLOBIN 29.6 pg (27.0-34.8); MEAN CORPUSCULAR HGB CONC 32.1 g/dL (32.4-35.8); MONOCYTES % (AUTO) 2 % (2-9); NEUTROPHILS % (AUTO) 87 % (42-75); PLATELET COUNT 465 x10^3/uL (130-400); RED CELL DISTRIBUTION WIDTH 15.6 % (9.6-15.2)
[2020-07-09 04:37] LABS: MD NO
[2020-07-09 05:53] LABS: ANION GAP 6 mmol/L (5-15); CHLORIDE 118 mmol/L (98-107)
[2020-07-09 05:54] LABS: CREATININE 1.77 mg/dL (0.55-1.02); TRIGLYCERIDES 96 mg/dL (50-200)
[2020-07-09] MEDS: FAMOTIDINE 20 MG TABLET NG SCH (08:15)
[2020-07-09] MEDS: THIAMINE 100MG TABLET PO SCH (08:15)
[2020-07-09] MEDS: ASCORBIC ACID 500 MG TABLET PO SCH ×2 (08:15→22:01)
[2020-07-09] MEDS: metFORMIN 500 MG TABLET PO SCH (08:15)
[2020-07-09] MEDS: ENOXAPARIN 30 MG/0.3 ML SQ SCH ×2 (08:16→22:02)
[2020-07-09] MEDS: ZINC SULFATE 220 MG CAPSULE PO SCH (08:16)
[2020-07-09] MEDS: CHOLECALCIFEROL 5,000u TAB PO SCH (08:16)
[2020-07-09] MEDS: QUETIAPINE 25MG TABLET NG SCH ×3 (08:16→22:01)
[2020-07-09] MEDS: SODIUM CHLORIDE FLUSH 10ML SYR IVF SCH ×2 (08:19→21:00)
[2020-07-09] MEDS: INSULIN GLARGINE 100 UNITS/ML, PEN SQ-INSULIN SCH ×2 (10:59→22:03)
[2020-07-09] MEDS: ACETAMINOPHEN 650 MG/20.3 ML UDC PO PRN (18:02)
[2020-07-10] MEDS: ALBUTEROL/IPRATROPIUM 2.5MG/0.5MG, 3 ML INLINE SCH ×6 (02:35→22:15)
[2020-07-10] MEDS: INSULIN LISPRO 100 UNITS/ML, PEN SQ-INSULIN SCH ×4 (03:23→21:28)
[2020-07-10 03:52] LABS: BASOPHILS % (AUTO) 1 % (0-1); EOSINOPHILS % (AUTO) 2 % (1-7); LYMPHOCYTES % (AUTO) 15 % (22-44); MEAN CORPUSCULAR HEMOGLOBIN 29.8 pg (27.0-34.8); MEAN CORPUSCULAR HGB CONC 32.2 g/dL (32.4-35.8); MEAN PLATELET VOLUME 6.9 fL (7.4-10.4); MONOCYTES % (AUTO) 3 % (2-9); NEUTROPHILS % (AUTO) 80 % (42-75); PLATELET COUNT 361 x10^3/uL (130-400); RED BLOOD COUNT 2.63 x10^6/uL (3.82-5.3); RED CELL DISTRIBUTION WIDTH 16.1 % (9.6-15.2)
[2020-07-10 03:55] LABS: ANION GAP 5 mmol/L (5-15); CALCIUM 8.4 mg/dL (8.5-10.1); CHLORIDE 123 mmol/L (98-107)
[2020-07-10 04:00] VITALS: BP 103/47
[2020-07-10 04:06] LABS: MD NO
[2020-07-10] MEDS ORDERED: SODIUM CHLORIDE 0.9%, 500ML IVBOLUS ONE (04:30)
[2020-07-10] MEDS ORDERED: metFORMIN 500 MG TABLET PO SCH (08:00)
[2020-07-10] MEDS: MIDAZOLAM HCL 50 MG in SODIUM CHLORIDE 0.9% 40 ML IV PRN ×2 (08:29→12:02)
[2020-07-10] MEDS: ASCORBIC ACID 500 MG TABLET PO SCH ×2 (08:44→21:26)
[2020-07-10] MEDS: SODIUM CHLORIDE FLUSH 10ML SYR IVF SCH ×2 (08:44→21:00)
[2020-07-10] MEDS: QUETIAPINE 25MG TABLET NG SCH ×3 (08:45→21:26)
[2020-07-10] MEDS: ZINC SULFATE 220 MG CAPSULE PO SCH (08:45)
[2020-07-10] MEDS: THIAMINE 100MG TABLET PO SCH (08:45)
[2020-07-10] MEDS: CHOLECALCIFEROL 5,000u TAB PO SCH (08:45)
[2020-07-10] MEDS: FAMOTIDINE 20 MG TABLET NG SCH (08:45)
[2020-07-10] MEDS: ENOXAPARIN 30 MG/0.3 ML SQ SCH (08:46)
[2020-07-10] MEDS: INSULIN GLARGINE 100 UNITS/ML, PEN SQ-INSULIN SCH ×2 (08:50→21:27)
[2020-07-10] MEDS ORDERED: FUROSEMIDE 40 MG/4 ML IV ONE (12:00)
[2020-07-10] MEDS: FENTANYL PF 2,500 MCG in SODIUM CHLORIDE 0.9% 200 ML IV PRN (21:28)
[2020-07-10] MEDS ORDERED: ENOXAPARIN 40 MG/0.4 ML SQ SCH (23:00)
[2020-07-11] MEDS: ALBUTEROL/IPRATROPIUM 2.5MG/0.5MG, 3 ML INLINE SCH ×6 (02:15→22:17)
[2020-07-11] MEDS: INSULIN LISPRO 100 UNITS/ML, PEN SQ-INSULIN SCH ×4 (03:32→21:30)
[2020-07-11 03:44] LABS: BASOPHILS % (AUTO) 1 % (0-1); EOSINOPHILS % (AUTO) 3 % (1-7); LYMPHOCYTES % (AUTO) 13 % (22-44); MEAN CORPUSCULAR HEMOGLOBIN 30.1 pg (27.0-34.8); MEAN CORPUSCULAR HGB CONC 32.7 g/dL (32.4-35.8); MEAN PLATELET VOLUME 6.8 fL (7.4-10.4); MONOCYTES % (AUTO) 3 % (2-9); NEUTROPHILS % (AUTO) 80 % (42-75); PLATELET COUNT 345 x10^3/uL (130-400); RED BLOOD COUNT 2.54 x10^6/uL (3.82-5.3)
[2020-07-11 03:54] LABS: ANION GAP 4 mmol/L (5-15); CALCIUM 8.6 mg/dL (8.5-10.1); CHLORIDE 122 mmol/L (98-107)
[2020-07-11 03:55] LABS: CREATININE 1.09 mg/dL (0.55-1.02); MD NO
[2020-07-11 04:00] VITALS: BP 98/49
[2020-07-11] MEDS: FAMOTIDINE 20 MG TABLET NG SCH (07:55)
[2020-07-11] MEDS: CHOLECALCIFEROL 5,000u TAB PO SCH (07:55)
[2020-07-11] MEDS: QUETIAPINE 25MG TABLET NG SCH ×3 (07:55→21:23)
[2020-07-11] MEDS: ASCORBIC ACID 500 MG TABLET PO SCH ×2 (07:55→21:23)
[2020-07-11] MEDS: THIAMINE 100MG TABLET PO SCH (07:55)
[2020-07-11] MEDS: ZINC SULFATE 220 MG CAPSULE PO SCH (07:56)
[2020-07-11] MEDS: SODIUM CHLORIDE FLUSH 10ML SYR IVF SCH ×2 (07:56→21:23)
[2020-07-11] MEDS: INSULIN GLARGINE 100 UNITS/ML, PEN SQ-INSULIN SCH ×2 (09:25→21:30)
[2020-07-11] MEDS: ENOXAPARIN 30 MG/0.3 ML SQ SCH ×2 (11:00→21:33)
[2020-07-11] MEDS ORDERED: VECURONIUM 10 MG ONE (15:25)
[2020-07-11] MEDS ORDERED: FENTANYL PF 100 MCG/2ML IVPush ONE (19:00)
[2020-07-11] MEDS ORDERED: VECURONIUM 10 MG IVPush ONE (19:00)
[2020-07-11] MEDS ORDERED: EPINEPHRINE SYRINGE 0.1 MG/ML, 10ML ONE (19:35)
[2020-07-11] MEDS: MIDAZOLAM HCL 50 MG in SODIUM CHLORIDE 0.9% 40 ML IV PRN (19:52)
[2020-07-12] MEDS: FENTANYL PF 2,500 MCG in SODIUM CHLORIDE 0.9% 200 ML IV PRN (00:07)
[2020-07-12] MEDS: ALBUTEROL/IPRATROPIUM 2.5MG/0.5MG, 3 ML INLINE SCH ×6 (03:00→23:00)
[2020-07-12 04:00] VITALS: BP 121/59
[2020-07-12] MEDS: INSULIN LISPRO 100 UNITS/ML, PEN SQ-INSULIN SCH ×4 (04:26→20:33)
[2020-07-12 04:32] LABS: BASOPHILS % (AUTO) 1 % (0-1); EOSINOPHILS % (AUTO) 3 % (1-7); LYMPHOCYTES % (AUTO) 13 % (22-44); MEAN CORPUSCULAR HEMOGLOBIN 29.7 pg (27.0-34.8); MEAN CORPUSCULAR HGB CONC 32.4 g/dL (32.4-35.8); MEAN PLATELET VOLUME 6.8 fL (7.4-10.4); MONOCYTES % (AUTO) 3 % (2-9); NEUTROPHILS % (AUTO) 80 % (42-75); PLATELET COUNT 350 x10^3/uL (130-400); RED BLOOD COUNT 2.66 x10^6/uL (3.82-5.3); RED CELL DISTRIBUTION WIDTH 15.8 % (9.6-15.2)
[2020-07-12 04:34] LABS: MD NO
[2020-07-12 04:49] LABS: ANION GAP 1 mmol/L (5-15); CALCIUM 8.9 mg/dL (8.5-10.1); CHLORIDE 123 mmol/L (98-107); CREATININE 0.89 mg/dL (0.55-1.02); TRIGLYCERIDES 111 mg/dL (50-200)
[2020-07-12] MEDS: SODIUM CHLORIDE FLUSH 10ML SYR IVF SCH ×2 (08:23→20:31)
[2020-07-12] MEDS: ZINC SULFATE 220 MG CAPSULE PO SCH (08:23)
[2020-07-12] MEDS: CHOLECALCIFEROL 5,000u TAB PO SCH (08:24)
[2020-07-12] MEDS: THIAMINE 100MG TABLET PO SCH (08:24)
[2020-07-12] MEDS: FAMOTIDINE 20 MG TABLET NG SCH (08:24)
[2020-07-12] MEDS: ASCORBIC ACID 500 MG TABLET PO SCH ×2 (08:24→20:32)
[2020-07-12] MEDS: QUETIAPINE 25MG TABLET NG SCH ×3 (08:25→20:32)
[2020-07-12] MEDS: INSULIN GLARGINE 100 UNITS/ML, PEN SQ-INSULIN SCH ×2 (08:28→20:34)
[2020-07-12] MEDS: ENOXAPARIN 30 MG/0.3 ML SQ SCH ×2 (12:03→20:40)
[2020-07-12] MEDS: MIDAZOLAM HCL 50 MG in SODIUM CHLORIDE 0.9% 40 ML IV PRN (18:12)
[2020-07-13] MEDS: INSULIN LISPRO 100 UNITS/ML, PEN SQ-INSULIN SCH ×4 (03:51→20:11)
[2020-07-13 04:00] VITALS: BP 124/47
[2020-07-13] MEDS: ALBUTEROL/IPRATROPIUM 2.5MG/0.5MG, 3 ML INLINE SCH ×5 (04:00→18:55)
[2020-07-13 04:12] LABS: ANION GAP 3 mmol/L (5-15); CALCIUM 9.3 mg/dL (8.5-10.1); CHLORIDE 125 mmol/L (98-107); CREATININE 0.82 mg/dL (0.55-1.02)
[2020-07-13 04:14] LABS: BASOPHILS % (AUTO) 1 % (0-1); EOSINOPHILS % (AUTO) 4 % (1-7); LYMPHOCYTES % (AUTO) 14 % (22-44); MEAN CORPUSCULAR HEMOGLOBIN 29.9 pg (27.0-34.8); MEAN CORPUSCULAR HGB CONC 32.3 g/dL (32.4-35.8); MONOCYTES % (AUTO) 4 % (2-9); NEUTROPHILS % (AUTO) 77 % (42-75); PLATELET COUNT 331 x10^3/uL (130-400); RED BLOOD COUNT 2.67 x10^6/uL (3.82-5.3)
[2020-07-13 04:16] LABS: MD NO
[2020-07-13] MEDS: ENOXAPARIN 30 MG/0.3 ML SQ SCH ×2 (08:12→20:06)
[2020-07-13] MEDS: ZINC SULFATE 220 MG CAPSULE PO SCH (08:13)
[2020-07-13] MEDS: ASCORBIC ACID 500 MG TABLET PO SCH ×2 (08:13→20:06)
[2020-07-13] MEDS: QUETIAPINE 25MG TABLET NG SCH ×3 (08:13→20:06)
[2020-07-13] MEDS: CHOLECALCIFEROL 5,000u TAB PO SCH (08:14)
[2020-07-13] MEDS: FAMOTIDINE 20 MG TABLET NG SCH (08:14)
[2020-07-13] MEDS: THIAMINE 100MG TABLET PO SCH (08:14)
[2020-07-13] MEDS: SODIUM CHLORIDE FLUSH 10ML SYR IVF SCH ×2 (08:14→20:12)
[2020-07-13] MEDS: INSULIN GLARGINE 100 UNITS/ML, PEN SQ-INSULIN SCH ×2 (08:19→20:11)
[2020-07-13] MEDS ORDERED: MAGNESIUM SULFATE PMX 4GM/100M 100 ML IVPB ONE (10:00)
[2020-07-13] MEDS: POTASSIUM CHLORIDE 20 MEQ PACKET PO SCH ×2 (11:22→20:06)
[2020-07-13] MEDS ORDERED: EPINEPHRINE SYRINGE 0.1 MG/ML, 10ML ONE (12:03)
[2020-07-13] MEDS: FENTANYL PF 2,500 MCG in SODIUM CHLORIDE 0.9% 200 ML IV PRN (14:18)
[2020-07-13 14:42] LABS: ANION GAP 4 mmol/L (5-15); CALCIUM 9.7 mg/dL (8.5-10.1); CHLORIDE 122 mmol/L (98-107)
[2020-07-13] MEDS ORDERED: EPINEPHRINE 1 MG/ML, 1ML ONE (21:12)
== END 2020-07-14 01:14 | disposition expired | DRG 4 ==
LOC: ED 14:06 → EDIP 15:00 → CCU 22:01 → ICU 07-03 00:49
PROVIDERS: ADMIT Hospitalist; ATTEND Internal Medicine
PROC: 5A1955Z Respiratory Ventilation, Greater than 96 Consecutive Hours (ICD-10-PCS; 2020-06-27)
PROC: 5A09357 Assistance with Respiratory Ventilation, Less than 24 Consecutive Hours, Continuous Positive Airway Pressure (ICD-10-PCS; 2020-06-27)
PROC: 0BH17EZ Insertion of Endotracheal Airway into Trachea, Via Natural or Artificial Opening (ICD-10-PCS; 2020-06-27)
PROC: 0D9670Z Drainage of Stomach with Drainage Device, Via Natural or Artificial Opening (ICD-10-PCS; 2020-06-29)
PROC: XW033E5 Introduction of Remdesivir Anti-infective into Peripheral Vein, Percutaneous Approach, New Technology Group 5 (ICD-10-PCS; principal; 2020-07-03)
PROC: 05HY33Z Insertion of Infusion Device into Upper Vein, Percutaneous Approach (ICD-10-PCS; 2020-07-04)
PROC: B546ZZA Ultrasonography of Right Subclavian Vein, Guidance (ICD-10-PCS; 2020-07-04)
PROC: 0B113F4 Bypass Trachea to Cutaneous with Tracheostomy Device, Percutaneous Approach (ICD-10-PCS; 2020-07-11)
PROC: 0BJ08ZZ Inspection of Tracheobronchial Tree, Via Natural or Artificial Opening Endoscopic (ICD-10-PCS; 2020-07-11)
DX: U07.1 COVID-19 (principal); G93.41 Metabolic encephalopathy; J12.89 Other viral pneumonia; J96.01 Acute respiratory failure with hypoxia; K85.90 Acute pancreatitis without necrosis or infection, unspecified; N17.0 Acute kidney failure with tubular necrosis; Z68.41 Body mass index [BMI] 40.0-44.9, adult; E87.0 Hyperosmolality and hypernatremia; E87.1 Hypo-osmolality and hyponatremia; E87.4 Mixed disorder of acid-base balance; J44.0 Chronic obstructive pulmonary disease with (acute) lower respiratory infection; J81.1 Chronic pulmonary edema; Z99.11 Dependence on respirator [ventilator] status; D64.9 Anemia, unspecified; E03.9 Hypothyroidism, unspecified; E11.22 Type 2 diabetes mellitus with diabetic chronic kidney disease; E11.65 Type 2 diabetes mellitus with hyperglycemia; E66.9 Obesity, unspecified; E78.1 Pure hyperglyceridemia; E83.52 Hypercalcemia; E87.6 Hypokalemia; F17.200 Nicotine dependence, unspecified, uncomplicated; I13.10 Hypertensive heart and chronic kidney disease without heart failure, with stage 1 through stage 4 chronic kidney disease, or unspecified chronic kidney disease; I16.0 Hypertensive urgency; I46.9 Cardiac arrest, cause unspecified; I65.21 Occlusion and stenosis of right carotid artery; N18.9 Chronic kidney disease, unspecified; T38.0X5A Adverse effect of glucocorticoids and synthetic analogues, initial encounter; Z83.3 Family history of diabetes mellitus; Z90.49 Acquired absence of other specified parts of digestive tract
CPT/HCPCS: 36415; 36573; 36600; 70450; 70496; 70498; 70551; 71045; 74018; 74176; 76536; 76705; 76770; 80047; 80048; 80053; 81003; 82247; 82306; 82310; 82330; 82397; 82436; 82570; 82803; 82962; 83605; 83690; 83735; 83970; 84100; 84132; 84133; 84300; 84443; 84450; 84460; 84478; 84484; 85025; 85610; 85730; 87040; 87070; 87081; 87205; 87400; 87635; 87880; 92950; 93005; 93306; 94002; 94003; 94640; 94660; 96372; 96374; 96375; 99285; G0378; J0171; J0696; J1100; J1644; J1650; J1940; J2250; J2704; J3010; J3480; Q9967; C1751; J0295; J0630; J1815; J2430; J2920; J3475; J7030; J7040; J7050